=== PATIENT | female | born 1970 | race Caucasian/White ===

== ENCOUNTER 2016-12-15 20:03 | Emergency (ER) | payer MEDICAID ==
[2016-12-15 20:25] VITALS: BP 130/74
[2016-12-15] MEDS ORDERED: Ketorolac 60 MG/2 ML SDV IM ONE (20:28)
[2016-12-15] MEDS ORDERED: diphenhydrAMINE 50 MG/ML SDV IM ONE (20:31)
--- NOTE | 2016-12-15 20:32 | EDM.PDOC ---
ED HPI GENERAL MEDICAL PROBLEM - General Chief Complaint: Headache Stated Complaint: migriane Time Seen by Provider: 12/15/16 20:20 Source of Information: Reports: Patient History Limitations: Reports: No Limitations - History of Present Illness INITIAL COMMENTS - FREE TEXT/NARRATIVE: States that on Monday her headache started and it has progressively become worse over the last 2 days. Was out of imitrex to take which usually works well. Did take Tylenol today without any improvement. Ate some at 2 pm but is very nauseated so hasn't had anything since. 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 Left Temporal Headache Pain Score (Numeric/FACES): 8 - Related Data Allergies Allergy/AdvReac Type Severity Reaction Status Date / Time No Known Allergies Allergy Verified 12/15/16 20:19 Home Meds: Home Meds Cyclobenzaprine [Flexeril] 10 mg PO Q6H PRN 12/21/15 [History] Escitalopram [Lexapro] 20 mg PO DAILY 12/21/15 [History] SUMAtriptan [Imitrex] 25 mg PO Q2H PRN 12/21/15 [History] clonazePAM [Clonazepam] 2.5 mg PO QAM 12/21/15 [History] clonazePAM [Clonazepam] 5 mg PO BEDTIME 12/21/15 [History] clonazePAM [Clonazepam] 5 mg PO DAILY PRN 12/21/15 [History] traMADol HCl [Tramadol HCl] 50 mg PO Q6H PRN 12/21/15 [History] Cholecalciferol (Vitamin D3) [Vitamin D] 5,000 unit PO DAILY 12/15/16 [History] Social & Family History - Living Situation & Occupation Living situation: Reports: , with Family Occupation: Employed ED ROS GENERAL - Review of Systems Review Of Systems: See Below Constitutional: Reports: No Symptoms HEENT: Reports: Other (photophobia) Respiratory: Reports: No Symptoms GI/Abdominal: Reports: Nausea. Denies: Vomiting Neurological: Reports: Headache. Denies: Confusion, Numbness - Physical Exam Exam: See Below Exam Limited By: No Limitations General Appearance: Alert, WD/WN, Moderate Distress Eye Exam: Bilateral Eye: PERRL Course - Vital Signs Last Recorded V/S: Last Vital Signs Temp 98.6 F 12/15/16 20:22 Pulse 81 12/15/16 20:22 Resp 16 12/15/16 20:22 BP 130/74 12/15/16 20:22 Pulse Ox 95 12/15/16 20:22 Departure - Departure Time of Disposition: 20:33 Disposition: Home, Self-Care 01 Condition: Good Clinical Impression: Migraine - Discharge Information Forms: ED Department Discharge Additional Instructions: Go home and try to sleep. Push fluids as much a possible Recheck if not improving Use Imitrex as needed DO not drive tonight - Problem List & Annotations (1) Migraine SNOMED Code(s): 88346844 Code(s): G43.909 - MIGRAINE, UNSP, NOT INTRACTABLE, WITHOUT STATUS MIGRAINOSUS Status: Acute Priority: High Current Visit: Yes - Problem List Review Problem List Initiated/Reviewed/Updated: Yes
[2016-12-15] MEDS ORDERED: Promethazine 25 MG/ML SDV IM ONE (20:35)
== END 2016-12-15 20:53 | disposition home or self-care (01) ==
LOC: CC.ED 20:18
DX: G43.909 Migraine, unspecified, not intractable, without status migrainosus (principal); Z79.899 Other long term (current) drug therapy
CPT/HCPCS: 96372; 99282; J1200; J1885; J2550

== ENCOUNTER 2017-04-20 11:10 | Inpatient (IN) | payer MEDICAID ==
[2017-04-20] MEDS ORDERED: Ondansetron 4 MG/2 ML SDV IV PRN (13:02)
[2017-04-20] MEDS ORDERED: Magnesium Hydroxide 400 MG/5 ML Susp 30 ML Cup PO PRN (13:02)
[2017-04-20] MEDS ORDERED: Acetaminophen 325 MG Tab PO PRN (13:02)
[2017-04-20] MEDS ORDERED: Temazepam 15 MG Cap PO PRN (13:02)
[2017-04-20] MEDS ORDERED: Calcium Carbonate 500 MG Tab.Chew PO PRN (13:09)
[2017-04-20] MEDS ORDERED: SUMAtriptan 25 MG Tab PO PRN (13:10)
[2017-04-20] MEDS: methylPREDNISolone Sodium Succinate 125 MG/2 ML SDV IVPUSH SCH (13:35)
[2017-04-20] MEDS: Levofloxacin/Dextrose 5%-Water 500 MG in Premix Bag 1 BAG IV SCH (13:39)
[2017-04-20] MEDS: Enoxaparin 40 MG/0.4 ML Syringe SUBCUT SCH (13:40)
[2017-04-20] MEDS: ClonazePAM 1 MG Tab PO PRN (13:44)
[2017-04-20 13:58] LABS: CHLORIDE,CL 104 mEq/L (98-106); SODIUM,NA 139 mEq/L (136-145)
[2017-04-20] MEDS: Citalopram 10 MG Tab PO SCH (19:45)
[2017-04-20] MEDS: ClonazePAM 1 MG Tab PO SCH (19:45)
[2017-04-20] MEDS: Lactated Ringers 1,000 ML IV SCH (20:28)
[2017-04-20] MEDS: traMADol 50 MG Tab PO PRN (20:28)
[2017-04-20] MEDS: Cyclobenzaprine 10 MG Tab PO PRN (22:11)
[2017-04-21] MEDS: Lactated Ringers 1,000 ML IV SCH (06:15)
[2017-04-21] MEDS: Cholecalciferol (Vitamin D3) 1,000 Unit Tab PO SCH (08:06)
[2017-04-21] MEDS: ClonazePAM 1 MG Tab PO SCH ×2 (08:06→20:08)
[2017-04-21] MEDS ORDERED: Iopamidol 755 Mg/ML 100 ML Bottle IVPUSH ONE (08:08)
--- NOTE | 2017-04-21 09:43 | PN ---
DATE: 04/21/2017 This 47-year-old white female came in with hemoptysis, short of breath, coughing. She was really wheezing, is admitted with a diagnosis of bronchiolitis. PHYSICAL EXAMINATION: NECK: Supple. CHEST: Basically clear. CARDIAC: Sounds are good. ABDOMEN: Soft. EXTREMITIES: Unremarkable other than she has some pain in her calves. ASSESSMENT: HEMOPTYSIS AND BRONCHIOLITIS. I AM GOING TO GET A CTA OF HER CHEST AND A D-DIMER TO RULE OUT PULMONARY EMBOLI BECAUSE HER C-REACTIVE PROTEIN IS 0.3. JUSTIN/KARTHIKEYAN /[id number]
[2017-04-21] MEDS: Levofloxacin/Dextrose 5%-Water 500 MG in Premix Bag 1 BAG IV SCH (11:39)
[2017-04-21] MEDS: methylPREDNISolone Sodium Succinate 125 MG/2 ML SDV IVPUSH SCH (11:42)
[2017-04-21] MEDS: Enoxaparin 40 MG/0.4 ML Syringe SUBCUT SCH (11:43)
[2017-04-21] MEDS: traMADol 50 MG Tab PO PRN (16:08)
[2017-04-21] MEDS: ClonazePAM 1 MG Tab PO PRN (16:08)
[2017-04-21] MEDS ORDERED: ESCITALOPRAM 20 MG PO SCH (20:15)
[2017-04-21] MEDS: Citalopram 10 MG Tab PO SCH (20:36)
[2017-04-21] MEDS: Cyclobenzaprine 10 MG Tab PO PRN (22:39)
[2017-04-22] MEDS: Cholecalciferol (Vitamin D3) 1,000 Unit Tab PO SCH (07:54)
[2017-04-22] MEDS: ClonazePAM 1 MG Tab PO SCH ×2 (07:54→19:20)
[2017-04-22 09:07] LABS: CHLORIDE,CL 106 mEq/L (98-106); SODIUM,NA 143 mEq/L (136-145)
[2017-04-22] MEDS: methylPREDNISolone Sodium Succinate 125 MG/2 ML SDV IVPUSH SCH (12:16)
[2017-04-22] MEDS: Enoxaparin 40 MG/0.4 ML Syringe SUBCUT SCH (12:16)
[2017-04-22] MEDS: Levofloxacin/Dextrose 5%-Water 500 MG in Premix Bag 1 BAG IV SCH (12:16)
[2017-04-22] MEDS: Codeine/Promethazine 10-6.25 MG/5 ML Syrup 5 ML UD Cup PO PRN ×3 (12:25→22:20)
[2017-04-22] MEDS: traMADol 50 MG Tab PO PRN (14:35)
[2017-04-22] MEDS: ClonazePAM 1 MG Tab PO PRN (16:55)
[2017-04-22] MEDS: ESCITALOPRAM 20 MG PO SCH (19:20)
--- NOTE | 2017-04-22 20:31 | PCM.PN ---
- General Info Date of Service: 04/22/17 Admission Dx/Problem (Free Text): bronchiolitis Functional Status: Reports: Pain Controlled, Tolerating Diet, Ambulating - Review of Systems General: Reports: Fatigue. Denies: Fever HEENT: Reports: Rhinitis Pulmonary: Reports: Cough. Denies: Shortness of Breath, Sputum, Wheezing Cardiovascular: Denies: Chest Pain, Edema, Lightheadedness Gastrointestinal: Denies: Abdominal Pain, Nausea, Vomiting Genitourinary: Reports: No Symptoms Musculoskeletal: Reports: No Symptoms Skin: Reports: No Symptoms Neurological: Reports: No Symptoms - Patient Data Vitals - Most Recent: Last Vital Signs Temp 96.5 F 04/22/17 19:42 Pulse 111 H 04/22/17 19:42 Resp 16 04/22/17 19:42 BP 136/67 04/22/17 19:42 Pulse Ox 94 L 04/22/17 19:42 Weight - Most Recent: 199 lb 15.348 oz Lab Results Last 24 Hours: Laboratory Results - last 24 hr 04/22/17 04/22/17 Range/Units 08:50 08:50 WBC 13.9 H (5.0-10.0) 10^3/uL RBC 4.75 (4.00-5.50) 10^6/uL Hgb 14.2 (12.0-16.0) g/dL Hct 42.3 (37.0-47.0) % MCV 89.1 (82.0-94.0) fL MCH 29.9 (27.0-32.0) pg MCHC 33.6 (33.0-38.0) g/dL RDW Coeff of [place] 13.3 (11.0-15.0) % Plt Count 267 (150-400) 10^3/uL Neut % (Auto) 67.7 (35-85) % Lymph % (Auto) 26.8 (10-55) % Gove % (Auto) 5.0 (0-16) % Eos % (Auto) 0.4 (0-5) % Baso % (Auto) 0.1 (0-3) % Neut # (Auto) 9.39 H (1.80-7.00) 10^3/uL Lymph # (Auto) 3.72 (1.00-4.80) 10^3/uL Gove # (Auto) 0.70 (0.00-0.80) 10^3/uL Eos # (Auto) 0.05 (0.00-0.45) 10^3/uL Baso # (Auto) 0.02 10^3/uL Sodium 143 (136-145) mEq/L Potassium 3.4 L (3.5-5.0) mEq/L Chloride 106 (98-106) mEq/L Carbon Dioxide 29 (21-32) mmol/L BUN 12 (7-18) mg/dL Creatinine 0.7 (0.6-1.0) mg/dL Est Cr Clr Drug Dosing 100.22 mL/min Estimated GFR (MDRD) > 60 (>=60) mL/min Glucose 123 H (75-99) mg/dL Calcium 9.0 (8.4-10.1) mg/dL C-Reactive Protein < 0.2 L (0.2-0.8) mg/dL Med Orders - Current: Current Medications Acetaminophen (Tylenol) 650 mg PO Q4H PRN PRN Reason: Pain (Mild 1-3)/fever Calcium Carbonate/Glycine (Tums) 500 mg PO QID PRN PRN Reason: Dyspepsia Cholecalciferol (Vitamin D3) 4,000 units PO DAILY [facility] Last Admin: 04/22/17 07:54 Dose: 4,000 units Clonazepam (Klonopin) 0.5 mg PO DAILY PRN PRN Reason: Anxiety Last Admin: 04/22/17 16:55 Dose: 0.5 mg Clonazepam (Klonopin) 1 mg PO BEDTIME [facility] Last Admin: 04/22/17 19:20 Dose: 1 mg Clonazepam (Klonopin) 1 mg PO QAM [facility] Last Admin: 04/22/17 07:54 Dose: 1 mg Cyclobenzaprine HCl (Flexeril) 10 mg PO Q6H PRN PRN Reason: Spasms Last Admin: 04/21/17 22:39 Dose: 10 mg Enoxaparin Sodium (Lovenox) 40 mg SUBCUT Q24H [facility] Last Admin: 04/22/17 12:16 Dose: 40 mg Levofloxacin/Dextrose 500 mg/ (Premix) 100 mls @ 100 mls/hr IV Q24H [facility] Last Admin: 04/22/17 12:16 Dose: 100 mls/hr Magnesium Hydroxide (Milk Of Magnesia) 30 ml PO Q12H PRN PRN Reason: Constipation Methylprednisolone Sodium Succinate (Solu-Medrol) 62.5 mg IVPUSH Q24H [facility] Last Admin: 04/22/17 12:16 Dose: 62.5 mg Escitalopram 20 Mg * (*Own Med) 0 each PO BEDTIME [facility] Last Admin: 04/22/17 19:20 Dose: 20 each Ondansetron HCl (Zofran) 4 mg IV Q6H PRN PRN Reason: Nausea/Vomiting Promethazine HCl/Codeine (Phenergan With Codeine) 5 - 10 ml PO Q4H PRN PRN Reason: Cough Last Admin: 04/22/17 16:55 Dose: 5 ml Sumatriptan Succinate (Imitrex) 25 mg PO ASDIRECTED PRN PRN Reason: MIGRAINE Temazepam (Restoril) 15 mg PO BEDTIME PRN PRN Reason: Sleep Tramadol HCl (Ultram) 50 mg PO Q6H PRN PRN Reason: Pain Last Admin: 04/22/17 14:35 Dose: 50 mg Discontinued Medications Citalopram Hydrobromide (Celexa) 40 mg PO BEDTIME [facility] Last Admin: 04/21/17 20:36 Dose: Not Given Lactated Ringer's (Ringers, Lactated) 1,000 mls @ 100 mls/hr IV ASDIRECTED [facility] Last Admin: 04/21/17 06:15 Dose: 100 mls/hr Iopamidol (Isovue-370 (76%)) 100 ml IVPUSH ONETIME ONE Stop: 04/21/17 08:09 Last Admin: 04/21/17 08:22 Dose: 100 ml Escitalopram 20 Mg * (*Own Med) 0 each PO DAILY [facility] Last Admin: 04/21/17 20:07 Dose: 20 each - Exam General: Alert, Oriented HEENT: Mucous Membr. Moist/[place] Neck: Supple Lungs: Normal Respiratory Effort, Crackles (RLL) Cardiovascular: Regular Rate, Regular Rhythm GI/Abdominal Exam: Normal Bowel Sounds, Soft, Non-Tender Back Exam: Normal Inspection Extremities: Normal Inspection, No Pedal Edema Skin: Warm, Dry Neurological: No New Focal Deficit - Problem List & Annotations (1) Bronchiolitis SNOMED Code(s): 7604799 Code(s): J21.9 - ACUTE BRONCHIOLITIS, UNSPECIFIED Status: Acute Priority : High Current Visit: Yes - Problem List Review Problem List Initiated/Reviewed/Updated: Yes - My Orders Last 24 Hours: My Active Orders 04/22/17 12:10 Codeine/Promethazine [Phenergan with Codeine] 5 - 10 ml PO Q4H PRN - Assessment Assessment:: Bronchitis - Plan Plan:: Patient feeling better today. Does continue to have frequent dry cough. Denies wheezing. No shortness of breath. Afebrile. Appetite has been good. Up and ambulating in halls. Will obtain labs today. Continue with IV Levaquin, Solu Medrol and nebulizer treatments. Start cough medicine. Question discharge tomorrow.
[2017-04-22] MEDS: Cyclobenzaprine 10 MG Tab PO PRN (22:19)
[2017-04-23] MEDS: Cholecalciferol (Vitamin D3) 1,000 Unit Tab PO SCH (07:51)
[2017-04-23] MEDS: ClonazePAM 1 MG Tab PO SCH ×2 (07:51→19:27)
[2017-04-23] MEDS: traMADol 50 MG Tab PO PRN (07:54)
--- NOTE | 2017-04-23 10:54 | PCM.PN ---
- General Info Date of Service: 04/23/17 Admission Dx/Problem (Free Text): bronchiolitis Functional Status: Reports: Pain Controlled, Tolerating Diet. Denies: Ambulating - Review of Systems General: Reports: Weakness, Fatigue. Denies: Fever HEENT: Reports: No Symptoms Pulmonary: Reports: Cough, Wheezing. Denies: Shortness of Breath, Sputum Cardiovascular: Denies: Chest Pain, Edema, Lightheadedness Gastrointestinal: Denies: Abdominal Pain, Decreased Appetite, Nausea, Vomiting Genitourinary: Reports: No Symptoms Musculoskeletal: Reports: No Symptoms Skin: Reports: No Symptoms Neurological: Reports: No Symptoms - Patient Data Vitals - Most Recent: Last Vital Signs Temp 96.3 F 04/23/17 07:47 Pulse 63 04/23/17 07:47 Resp 16 04/23/17 07:47 BP 110/57 L 04/23/17 07:47 Pulse Ox 96 04/23/17 07:47 Weight - Most Recent: 199 lb 15.348 oz Med Orders - Current: Current Medications Acetaminophen (Tylenol) 650 mg PO Q4H PRN PRN Reason: Pain (Mild 1-3)/fever Calcium Carbonate/Glycine (Tums) 500 mg PO QID PRN PRN Reason: Dyspepsia Cholecalciferol (Vitamin D3) 4,000 units PO DAILY [facility] Last Admin: 04/23/17 07:51 Dose: 4,000 units Clonazepam (Klonopin) 0.5 mg PO DAILY PRN PRN Reason: Anxiety Last Admin: 04/22/17 16:55 Dose: 0.5 mg Clonazepam (Klonopin) 1 mg PO BEDTIME [facility] Last Admin: 04/22/17 19:20 Dose: 1 mg Clonazepam (Klonopin) 1 mg PO QAM [facility] Last Admin: 04/23/17 07:51 Dose: 1 mg Cyclobenzaprine HCl (Flexeril) 10 mg PO Q6H PRN PRN Reason: Spasms Last Admin: 04/22/17 22:19 Dose: 10 mg Enoxaparin Sodium (Lovenox) 40 mg SUBCUT Q24H [facility] Last Admin: 04/22/17 12:16 Dose: 40 mg Levofloxacin/Dextrose 500 mg/ (Premix) 100 mls @ 100 mls/hr IV Q24H [facility] Last Admin: 12/02/17 12:16 Dose: 100 mls/hr Magnesium Hydroxide (Milk Of Magnesia) 30 ml PO Q12H PRN PRN Reason: Constipation Methylprednisolone Sodium Succinate (Solu-Medrol) 62.5 mg IVPUSH Q24H [facility] Last Admin: 04/22/17 12:16 Dose: 62.5 mg Escitalopram 20 Mg * (*Own Med) 0 each PO BEDTIME [facility] Last Admin: 04/22/17 19:20 Dose: 20 each Ondansetron HCl (Zofran) 4 mg IV Q6H PRN PRN Reason: Nausea/Vomiting Promethazine HCl/Codeine (Phenergan With Codeine) 5 - 10 ml PO Q4H PRN PRN Reason: Cough Last Admin: 04/22/17 22:20 Dose: 5 ml Sumatriptan Succinate (Imitrex) 25 mg PO ASDIRECTED PRN PRN Reason: MIGRAINE Temazepam (Restoril) 15 mg PO BEDTIME PRN PRN Reason: Sleep Tramadol HCl (Ultram) 50 mg PO Q6H PRN PRN Reason: Pain Last Admin: 04/23/17 07:54 Dose: 50 mg Discontinued Medications Citalopram Hydrobromide (Celexa) 40 mg PO BEDTIME [facility] Last Admin: 04/21/17 20:36 Dose: Not Given Lactated Ringer's (Ringers, Lactated) 1,000 mls @ 100 mls/hr IV ASDIRECTED [facility] Last Admin: 04/21/17 06:15 Dose: 100 mls/hr Iopamidol (Isovue-370 (76%)) 100 ml IVPUSH ONETIME ONE Stop: 04/21/17 08:09 Last Admin: 04/21/17 08:22 Dose: 100 ml Escitalopram 20 Mg * (*Own Med) 0 each PO DAILY [facility] Last Admin: 04/21/17 20:07 Dose: 20 each - Exam General: Alert, Oriented HEENT: Mucous Membr. Moist/[place] Neck: Supple Lungs: Normal Respiratory Effort, Rhonchi Cardiovascular: Regular Rate, Regular Rhythm GI/Abdominal Exam: Normal Bowel Sounds, Soft, Non-Tender Back Exam: Normal Inspection Extremities: Normal Inspection, No Pedal Edema Skin: Warm, Dry Neurological: No New Focal Deficit - Problem List & Annotations (1) Bronchiolitis SNOMED Code(s): 5027557 Code(s): J21.9 - ACUTE BRONCHIOLITIS, UNSPECIFIED Status: Acute Priority : High Current Visit: Yes - Problem List Review Problem List Initiated/Reviewed/Updated: Yes - My Orders Last 24 Hours: My Active Orders 04/22/17 12:10 Codeine/Promethazine [Phenergan with Codeine] 5 - 10 ml PO Q4H PRN 04/24/17 05:11 BASIC METABOLIC PANEL,BMP [CHEM] AM C-REACTIVE PROTEIN [CHEM] AM CBC WITH AUTO DIFF [HEME] AM - Assessment Assessment:: Bronchitis - Plan Plan:: Patient feeling better today. Does continue to have frequent dry cough. Denies wheezing. No shortness of breath. Afebrile. Appetite has been good. Up and ambulating in halls. Will obtain labs today. Continue with IV Levaquin, Solu Medrol and nebulizer treatments. Start cough medicine. Question discharge tomorrow. 04-23-2017 Patient states slept well last night, reports best night of sleep in weeks after getting cough medicine. No fevers. Does still have tightness in her chest, tight cough. Appetite has been good. Will obtain labs in am. Continue with same regimen. Encourage ambulation. Discharge home tomorrow.
[2017-04-23] MEDS: Enoxaparin 40 MG/0.4 ML Syringe SUBCUT SCH (11:29)
[2017-04-23] MEDS: methylPREDNISolone Sodium Succinate 125 MG/2 ML SDV IVPUSH SCH (11:29)
[2017-04-23] MEDS: Levofloxacin/Dextrose 5%-Water 500 MG in Premix Bag 1 BAG IV SCH (11:29)
[2017-04-23] MEDS ORDERED: Carvedilol 3.125 MG Tab PO ONE (11:37)
[2017-04-23] MEDS: Codeine/Promethazine 10-6.25 MG/5 ML Syrup 5 ML UD Cup PO PRN ×2 (11:39→15:33)
[2017-04-23] MEDS: ClonazePAM 1 MG Tab PO PRN (15:33)
[2017-04-23] MEDS: ESCITALOPRAM 20 MG PO SCH (19:27)
[2017-04-23] MEDS: Cyclobenzaprine 10 MG Tab PO PRN (23:41)
[2017-04-24] MEDS: ClonazePAM 1 MG Tab PO PRN (00:16)
[2017-04-24] MEDS: Cholecalciferol (Vitamin D3) 1,000 Unit Tab PO SCH (07:24)
[2017-04-24] MEDS: ClonazePAM 1 MG Tab PO SCH (07:25)
[2017-04-24 08:24] LABS: CHLORIDE,CL 105 mEq/L (98-106); SODIUM,NA 142 mEq/L (136-145)
[2017-04-24 10:25] VITALS: BP 111/71
--- NOTE | 2017-04-25 09:02 | DISCH ---
HOSPITAL COURSE: Gardenia Gonsalez came in with a pneumonitis, I believe right lower lobe. She had hemoptysis; so, we did a CTA of her chest, no blood clots, but a documented pneumonia. She was started on IV steroids, intravenous antibiotics, responded nicely. At the time of discharge, she was afebrile, no further hemoptysis. PHYSICAL EXAMINATION: NECK: Supple. CHEST: Clear. CARDIAC: Sounds are good. LABORATORY DATA: C-reactive proteins were okay, urinalysis unremarkable, panel- 8 looked good. CBC white count was elevated possibly from the steroids. DISPOSITION: The patient now discharged home. We will see her back in the clinic in 1 week. DISCHARGE MEDICATIONS: Home meds plus prednisone 20 daily for 5 days, Levaquin 500 daily for 6 days. DISCHARGE DIAGNOSIS: 1. PNEUMONITIS. 2. HEMOPTYSIS. 3. DEPRESSION. JUSTIN/KARTHIKEYAN /[id number]
== END 2017-04-24 10:10 | disposition home or self-care (01) | DRG 194 ==
LOC: CC.MS 11:10 → UNDOADMIN 11:10 → CC.MS 11:30
PROVIDERS: ADMIT General Practice; ATTEND General Practice
DX: J18.9 Pneumonia, unspecified organism (principal); R04.2 Hemoptysis; F32.9 Major depressive disorder, single episode, unspecified; F41.9 Anxiety disorder, unspecified; E78.5 Hyperlipidemia, unspecified; Z79.899 Other long term (current) drug therapy
CPT/HCPCS: 36415; 71020; 71275; 80048; 80053; 81001; 83735; 84443; 85025; 86140; 93005; A9270-GY; J1650; J1956; J2930; J7120; Q9967

== ENCOUNTER 2017-10-18 16:59 | Emergency (ER) | payer MEDICAID ==
[2017-10-18 17:30] VITALS: BP 116/66
--- NOTE | 2017-10-18 17:41 | EDM.PDOC ---
ED HPI GENERAL MEDICAL PROBLEM - General Chief Complaint: Lower Extremity Injury/Pain Stated Complaint: heavy object fell on addis great toes Time Seen by Provider: 10/18/17 17:27 Source of Information: Reports: Patient History Limitations: Reports: No Limitations - History of Present Illness INITIAL COMMENTS - FREE TEXT/NARRATIVE: Patient presents with bilateral foot pain, especially to the great toes. She was refinishing a piece of furniture and the sawhorse fell back landing on her toes. States her toes feel numb. Limited range of motion due to pain. Has noted mild bruising to her great toes. Onset: Today, Sudden Duration: Hour(s): Location: Reports: Lower Extremity, Left, Lower Extremity, Right Quality: Reports: Throbbing Severity: Moderate Improves with: Reports: Rest Worsens with: Reports: Movement Context: Reports: Trauma Associated Symptoms: Reports: No Other Symptoms Right 1-Hallux Pain Score (Numeric/FACES): 9 Left 1-Hallux Pain Score (Numeric/FACES): 8 - Related Data Allergies Allergy/AdvReac Type Severity Reaction Status Date / Time No Known Allergies Allergy Verified 10/18/17 17:26 Home Meds: Home Meds Cyclobenzaprine [Flexeril] 10 mg PO Q6H PRN 12/21/15 [History] Escitalopram [Lexapro] 20 mg PO BEDTIME 12/21/15 [History] SUMAtriptan [Imitrex] 25 mg PO Q2H PRN 12/21/15 [History] clonazePAM [Clonazepam] 0.5 mg PO DAILY PRN 12/21/15 [History] clonazePAM [Clonazepam] 1 mg PO BEDTIME 12/21/15 [History] clonazePAM [Clonazepam] 1 mg PO QAM 12/21/15 [History] traMADol HCl [Tramadol HCl] 50 mg PO Q6H PRN 12/21/15 [History] Cholecalciferol (Vitamin D3) [Vitamin D] 4,000 unit PO DAILY 12/15/16 [History] Past Medical History Gastrointestinal History: Reports: None Genitourinary History: Reports: None 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: Musculoskeletal History: Reports: Arthritis, Back Pain, Chronic, Fracture, Other (See Below) Other Musculoskeletal History: 2 bulging discs Neurological History: Reports: Migraines Psychiatric History: Reports: Anxiety, PTSD - Past Surgical History HEENT Surgical History: Reports: Oral Surgery GI Surgical History: Reports: Colonoscopy Female Surgical History: Reports: Section, Hysterectomy Neurological Surgical History: Reports: None Musculoskeletal Surgical History: Reports: None Social & Family History - Family History Family Medical History: Noncontributory - Tobacco Use Smoking Status *Q: Former Smoker Used Tobacco, but Quit: Yes Month/Year Tobacco Last Used: 6 years ago - Living Situation & Occupation Living situation: Reports: , with Family Occupation: Employed Review of Systems - Review of Systems Review Of Systems: See Below Constitutional: Reports: No Symptoms Eyes: Reports: No Symptoms Ears: Reports: No Symptoms Nose: Reports: No Symptoms Mouth/Throat: Reports: No Symptoms Respiratory: Reports: No Symptoms Cardiovascular: Reports: No Symptoms GI/Abdominal: Reports: No Symptoms Musculoskeletal: Reports: Foot Pain Skin: Reports: Bruising Neurological: Reports: No Symptoms ED EXAM, GENERAL - Physical Exam Exam: See Below Exam Limited By: No Limitations General Appearance: Alert, WD/WN, No Apparent Distress Extremities: Other (patient noted to have mild swelling and bruising to bilateral great toes. Is tender. Limited range of motion without increasing pain. ) Course - Vital Signs Last Recorded V/S: Last Vital Signs Temp 96.8 F 10/18/17 17:03 Pulse 83 10/18/17 17:03 Resp 20 10/18/17 17:03 BP 116/66 10/18/17 17:03 Pulse Ox 95 10/18/17 17:03 - Orders/Labs/Meds Orders: Active Orders 24 hr Category Date Time Status Foot Comp Min 3V Lt [CR] Routine Exams 10/18/17 Taken Foot Comp Min 3V Rt [CR] Stat Exams 10/18/17 17:07 Taken - Re-Assessments/Exams Free Text/Narrative Re-Assessment/Exam: 10/18/17 18:42 Xrays are negative Departure - Departure Time of Disposition: 17:40 Disposition: Home, Self-Care 01 Clinical Impression: Contusion of great toe, right, Contusion of great toe of left foot - Discharge Information Referrals: Rudy Pelaez MD [Primary Care Provider] - Forms: ED Department Discharge Additional Instructions: 1. Rest 2. Ice frequently tonight 3. Elevate feet 4. Wear good protective shoes. 5. Ibuprofen 400-600 mg for discomfort and swelling 6. Follow up if any ongoing concerns - My Orders Last 24 Hours: My Active Orders 10/18/17 Foot Comp Min 3V Lt [CR] Routine 10/18/17 17:07 Foot Comp Min 3V Rt [CR] Stat - Assessment/Plan Last 24 Hours: My Active Orders 10/18/17 Foot Comp Min 3V Lt [CR] Routine 10/18/17 17:07 Foot Comp Min 3V Rt [CR] Stat
== END 2017-10-18 17:45 | disposition home or self-care (01) ==
LOC: CC.ED 16:59
DX: S90.112A Contusion of left great toe without damage to nail, initial encounter (principal); S90.111A Contusion of right great toe without damage to nail, initial encounter; F41.9 Anxiety disorder, unspecified; Z87.891 Personal history of nicotine dependence; Z79.899 Other long term (current) drug therapy; W20.8XXA Other cause of strike by thrown, projected or falling object, initial encounter
CPT/HCPCS: 73630-LT; 73630-RT; 99283

== ENCOUNTER 2020-10-06 14:26 | Emergency (ER) | payer MEDICAID ==
[2020-10-06] MEDS ORDERED: Sodium Chloride 0.9% 1,000 ML IV ONE (14:52)
[2020-10-06] MEDS ORDERED: Ketorolac 30 MG/ML SDV IVPUSH ONE (14:52)
[2020-10-06] MEDS ORDERED: Ondansetron 4 MG/2 ML SDV IVPUSH STA (14:52)
[2020-10-06] MEDS ORDERED: SUMAtriptan 6 MG/0.5 ML SDV SUBCUT ONE (14:54)
--- NOTE | 2020-10-06 15:00 | EDM.PDOC ---
ED HPI GENERAL MEDICAL PROBLEM - General Stated Complaint: MIGRAINE Time Seen by Provider: 10/06/20 14:45 Source of Information: Reports: Patient History Limitations: Reports: No Limitations - History of Present Illness INITIAL COMMENTS - FREE TEXT/NARRATIVE: Gardenia is a 50 yr old female who presents to the ED with complaints of a migraine headache. She states symptoms started Monday and she attempted taking Imitrex which did give some relief. She states she has been using ice packs as well. She admits she will get one about once a month. States she can't seem to get rid of it this time and doesn't have any Imitrex left at home. Last dose was taken yesterday. States the headache has its typical migraine features. States she gets a stabbing pain behind her left eye. Has found dark rooms to help. Denies any other neurological deficits or symptoms. - Related Data Allergies Allergy/AdvReac Type Severity Reaction Status Date / Time No Known Allergies Allergy Verified 10/18/17 17:26 Home Meds: Home Meds Cyclobenzaprine [Flexeril] 10 mg PO Q6H PRN 12/21/15 [History] Escitalopram [Lexapro] 20 mg PO BEDTIME 12/21/15 [History] SUMAtriptan [Imitrex] 25 mg PO Q2H PRN 12/21/15 [History] clonazePAM [Clonazepam] 0.5 mg PO DAILY PRN 12/21/15 [History] clonazePAM [Clonazepam] 1 mg PO BEDTIME 12/21/15 [History] clonazePAM [Clonazepam] 1 mg PO QAM 12/21/15 [History] traMADol HCl [Tramadol HCl] 50 mg PO Q6H PRN 12/21/15 [History] Cholecalciferol (Vitamin D3) [Vitamin D] 4,000 unit PO DAILY 12/15/16 [History] Past Medical History Gastrointestinal History: Reports: None Genitourinary History: Reports: None 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: Musculoskeletal History: Reports: Arthritis, Back Pain, Chronic, Fracture, Other (See Below) Other Musculoskeletal History: 2 bulging discs Neurological History: Reports: Migraines Psychiatric History: Reports: Anxiety, PTSD - Past Surgical History HEENT Surgical History: Reports: Oral Surgery GI Surgical History: Reports: Colonoscopy Female Surgical History: Reports: Section, Hysterectomy Neurological Surgical History: Reports: None Musculoskeletal Surgical History: Reports: None Social & Family History - Family History Family Medical History: No Pertinent Family History - Living Situation & Occupation Living situation: Reports: , with Family Occupation: Employed ED ROS GENERAL - Review of Systems Review Of Systems: See Below Constitutional: Reports: Decreased Appetite. Denies: Fever, Weakness HEENT: Reports: No Symptoms Respiratory: Reports: No Symptoms Cardiovascular: Reports: No Symptoms Endocrine: Reports: No Symptoms GI/Abdominal: Reports: No Symptoms : Reports: No Symptoms Skin: Reports: No Symptoms Neurological: Reports: Headache, Pre-Existing Deficit. Denies: Dizziness, Seizure, Difficulty Walking, Change in Speech, Gait Disturbance Psychiatric: Reports: No Symptoms Hematologic/Lymphatic: Reports: No Symptoms - Physical Exam Exam: See Below Exam Limited By: No Limitations General Appearance: Alert, Mild Distress Eye Exam: Bilateral Eye: EOMI, Normal Inspection, PERRL Ears: Normal External Exam, Hearing Grossly Normal Nose: Normal Inspection Throat/Mouth: Normal Voice, No Airway Compromise Head Exam: Atraumatic, Normocephalic Neck: Normal Inspection, Supple. No: Tender Lateral, Tender Midline Respiratory/Chest: No Respiratory Distress, Lungs Clear, No Accessory Muscle Use Cardiovascular: Regular Rate, Rhythm, No Edema, No Murmur Neuro Exam (Abbreviated): Alert, Oriented, CN II-XII Intact, Normal Cognition, No Motor/Sensory Deficits Extremities: Normal Inspection, No Pedal Edema Psychiatric: Tearful Skin Exam: Warm, Dry, Intact Course - Orders/Labs/Meds Orders: Active Orders 24 hr Category Date Time Status Sodium Chloride 0.9% [Normal Saline] 1,000 ml Med 10/06/20 14:52 Active IV .BOLUS Medication Orders Sodium Chloride (Normal Saline) 1,000 mls @ 250 mls/hr IV .BOLUS ONE Stop: 10/06/20 18:51 Last Admin: 10/06/20 15:11 Dose: 250 mls/hr Documented by: [employer] Meds: Medications Generic Name Dose Route Start Last Admin Trade Name Freq PRN Reason Stop Dose Admin Sodium Chloride 1,000 mls @ 250 mls/hr 10/06/20 14:52 10/06/20 15:11 Normal Saline IV 10/06/20 18:51 250 mls/hr .BOLUS ONE Administration Discontinued Medications Generic Name Dose Route Start Last Admin Trade Name Freq PRN Reason Stop Dose Admin Ketorolac Tromethamine 30 mg 10/06/20 14:52 10/06/20 15:12 Ketorolac 30 Mg/Ml Sdv IVPUSH 10/06/20 14:53 30 mg ONETIME ONE Administration Ondansetron HCl 4 mg 10/06/20 14:52 10/06/20 15:07 Ondansetron 4 Mg/2 Ml Sdv IVPUSH 10/06/20 14:53 4 mg NOW STA Administration Sumatriptan Succinate 6 mg 10/06/20 14:54 10/06/20 15:08 Sumatriptan 6 Mg/0.5 Ml Sdv SUBCUT 10/06/20 14:55 6 mg ONETIME ONE Administration Departure - Departure Time of Disposition: 16:10 Disposition: Home, Self-Care 01 Clinical Impression: Migraine Qualifiers: Migraine type: without aura Status migrainosus presence: with status migrainosus Intractability: intractable Qualified Code(s): G43.011 - Migraine without aura, intractable, with status migrainosus - Discharge Information *PRESCRIPTION DRUG MONITORING PROGRAM REVIEWED*: No *COPY OF PRESCRIPTION DRUG MONITORING REPORT IN PATIENT NGA: No Instructions: Recurrent Migraine Headache, [id number] Additional Instructions: 1) Prescription for Imitrex 100mg given 2) Rest today 3) Increase water intake 4) May use home remedies, ice pack, etc.. if any residual headache persists. 5) If symptoms worsen, recommend returning for reevaluation. - Problem List & Annotations (1) Migraine SNOMED Code(s): 33707718 Code(s): G43.909 - MIGRAINE, UNSP, NOT INTRACTABLE, WITHOUT STATUS MIGRAINOSUS Status: Acute Qualifiers: Migraine type: without aura Status migrainosus presence: with status migrainosus Intractability: intractable Qualified Code(s): G43.011 - Migraine without aura, intractable, with status migrainosus - My Orders Last 24 Hours: My Active Orders 10/06/20 14:52 Sodium Chloride 0.9% [Normal Saline] 1,000 ml IV .BOLUS - Assessment/Plan Last 24 Hours: My Active Orders 10/06/20 14:52 Sodium Chloride 0.9% [Normal Saline] 1,000 ml IV .BOLUS Plan: Patient was given 1L of NS, 15mg of Toradol (IV) and 6mg of Imitrex (SC). Headache significantly improved and patient feels she is ready to go home. Will discharge with prescription for Imitrex as she is out. Recommend following up with primary for refills. Vital signs stable, no concerning findings. See nurses note for vital signs.
[2020-10-06 18:53] VITALS: BP 97/54; PULSE 100
== END 2020-10-06 16:25 | disposition home or self-care (01) ==
LOC: CC.ED 14:26
DX: G43.011 Migraine without aura, intractable, with status migrainosus (principal); Z79.899 Other long term (current) drug therapy
CPT/HCPCS: 96372; 96374; 96375; 99283-25; J1885; J2405; J3030; J7030